=== PATIENT | male | born 1940 | race Caucasian/White ===

== ENCOUNTER 2018-05-01 06:46 | Inpatient (IN) ==
[2018-05-04] MEDS ORDERED: Chlorhexidine 4% Topical 120 APPLIC/120 ML Bottle TOPICAL SCH (21:00)
[2018-05-05] MEDS ORDERED: Metoprolol Tartrate 25 MG Tablet PO PRN (09:45)
[2018-05-05] MEDS ORDERED: Sodium Chlor 0.9% Inj 500 ML IV.SIG PRN (09:45)
[2018-05-05] MEDS ORDERED: Chlorhexidine Gluconate 2% 1 Pack (2 Cloths) TOPICAL PRN (09:45)
[2018-05-07] MEDS ORDERED: Morphine Inj 4 MG/ML Vial IV.PUSH PRN ×2 (01:00)
[2018-05-07] MEDS ORDERED: Bisacodyl 10 MG Supp RECTAL PRN (01:00)
[2018-05-07] MEDS ORDERED: Aluminum/Magnesium/Simethacone Susp 30 ML UDC PO SCH (01:00)
[2018-05-07] MEDS ORDERED: Acetaminophen 325 MG Tablet PO PRN (01:00)
[2018-05-07] MEDS ORDERED: Senna/Docusate Sodium 8.6/50 MG Tablet PO SCH (09:00)
[2018-05-07] MEDS ORDERED: Tolterodine Tartrate LA 2 MG Capsule PO SCH (09:00)
[2018-05-07] MEDS ORDERED: Pantoprazole Inj 40 MG Vial IV.PUSH SCH (09:00)
[2018-05-07] MEDS ORDERED: Finasteride 5 MG Tablet PO SCH (09:00)
[2018-05-07] MEDS ORDERED: Venlafaxine XR 75 MG Capsule PO SCH (09:00)
[2018-05-07] MEDS ORDERED: Polyethylene Glycol 3350 17 GM Packet PO SCH (09:00)
[2018-05-07] MEDS ORDERED: Multivitamin/Minerals Therapeutic Tablet PO SCH (09:00)
== END 2018-05-07 07:00 | disposition home health service (06) ==
LOC: UNDODISIN → N05 06:46
PROVIDERS: ADMIT Hospitalist; ATTEND Hospitalist